=== PATIENT | male | born 1980 | race Caucasian/White ===

== ENCOUNTER 2018-05-04 05:50 | Day surgery (SDC) | payer OTHER ==
[~2018-05-04] VITALS: Ht 188 cm; Wt 108.9 kg
[2018-05-04 12:15] VITALS: BP 119/82
[2018-05-04 15:00] VITALS: BP 119/82
--- NOTE | 2018-05-06 10:52 | O ---
[facility] [place] [address] OPERATIVE REPORT Name: DAYANNA CARDONA Room #: [facility] Mary Carmen#: [id number] Admission: 05/04/18 Attend Phys: Paco Rodriguez Discharge: 05/04/18 Date of : 82 Report #: [id number] THIS REPORT FOR: //name// CC: Paco YATES Physician staff [facility] DATE OF SERVICE: 05/04/2018 PREOPERATIVE DIAGNOSES: Right knee pain, anterior cruciate ligament tear, lateral meniscus tear. 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 PROCEDURE PERFORMED: Right knee arthroscopy, anterior cruciate ligament reconstruction, lateral meniscus repair, chondroplasty of medial femoral condyle. SURGEON: Paco Moreno M.D. DOCUMENT REVIEW ATTORNEY: Nazia Lino PA-C. ANESTHESIA: General with preoperative ultrasound-guided adductor block. FLUIDS: 1000 mL crystalloid. ESTIMATED BLOOD LOSS: Approximately 5 mL. IMPLANTS UTILIZED: Arthrex ACL TightRope device with a Mitek Bio-Intrafix 7 x 9 mm screw with a large sheath. DESCRIPTION OF PROCEDURE: After proper identification of the patient and the operative site in preoperative holding area, the operative site was signed by myself. Prophylactic antibiotics were given. The patient had elected to receive an adductor block by Anesthesia. This was performed under ultrasound guidance after reviewing the risks, benefits, alternatives and potential complications with Anesthesia. After a satisfactory block, the patient was brought back to the operative suite. After induction of satisfactory general anesthesia the right knee was examined, 2+ Sophia was noted as well as pivot shift. Tourniquet was applied to the upper thigh. Limb was placed in an arthroscopic leg bynum and sterilely prepped and draped in usual manner. The leg bynum accommodated hyperflexion. Limb was sterilely prepped and draped in the usual manner, elevated and exsanguinated with an Esmarch. Tourniquet was inflated to 300 mmHg. A superior medial portal was created for inflow purposes. [address] [address] OPERATIVE REPORT Name: DAYANNA CARDONA Room #: [facility] Mary Carmen#: [id number] Admission: 05/04/18 Attend Phys: Paco Rodriguez Discharge: 05/04/18 Date of : 82 Report #: [id number] Joint was inflated with an arthroscopic pump set at 40 mmHg. An anterolateral and then an anteromedial portal were created using a spinal needle for localization. Examination of the knee, suprapatellar pouch, medial and lateral gutters revealed some mild synovitis. Patellofemoral articulation was normal in appearance. Medial compartment of knee demonstrated some mild fibrillation of the more lateral margin of the medial femoral condyle at approximately 30 degrees of flexion. Medial meniscus was stable to probing. Anterior cruciate ligament demonstrated a full thickness tear. PCL was intact. Lateral compartment of the knee demonstrated a tear of the posterior horn of the lateral meniscus that was fairly peripheral in nature. Frayed portion of the meniscus was carefully debrided. The tear appeared to be amenable to repair. There was some mild softening of the meniscus, but overall it appeared amenable to repair and 2 [employer] Fast-Fix devices were used in a horizontal mattress fashion to reduce and repair the tear. It was stable to probing. No significant chondral abnormalities were noted about the lateral compartment. At this point, attention was divided to obtaining the graft. An incision overlying the pes tendons was planned. Full thickness skin flaps were developed. Sartorial fascia was identified and elevated in an L-shaped manner. Great care was taken to preserve the medial collateral ligament. At this point, the gracilis and semitendinosis tendons were bluntly dissected free. Right angle clamp was utilized to help assist in this and whipstitches were placed on the free ends. Adhesions were then carefully removed from the gracilis and semi-T tendons. The gracilis was able to be harvested for approximately 10 mm before the graft was either amputated or he ran out of tendinous material. The semitendinosis was harvested without complication with a nice graft based on our preoperative discussion of if we had any difficulties with obtaining a satisfactory graft an allograft would be utilized to supplement and this was obtained from the freezer, thawed and the combined anterior tibialis and semitendinosis graft created with 10 mm graft with plenty of length. This was placed on the GraftMaster under tension. Instruments were reinserted into the knee and the remaining ACL was carefully debrided. Footprints were left for visualization purposes. With the knee in a flexed position, an Arthrex tibial aiming guide was used, 10 mm tunnel was drilled and with the knee in a hyperflexed position using a 7 mm over the top guide, the femoral tunnel was drilled. Great care was taken to ensure the appropriate trajectory. Back wall was present. This was drilled over the pin. Total tunnel length was approximately 42 mm and a 30 mm tunnel was drilled within the femur. Any excess bone debris was carefully removed. A low profile reamer was used and was carefully passed by the medial femoral condyle. Any remaining bone debris was carefully removed. A FiberWire was passed into the femoral tunnel and then pulled into position on the tibial tunnel. This was then utilized to pull the ACL, TightRope device as well as the graft into position. The metal button was able to be toggled and was secured with longitudinal traction and appeared to be well seated on the cortex. There was no evidence of impingement on the graft in full extension or in flexion. The sutures were tied together and the Bio-Intrafix tensioning device was utilized and the knee was cycled for several [facility] [address] [place] [address] OPERATIVE REPORT Name: DAYANNA CARDONA Room #: [facility] Mary Carmen#: [id number] Admission: 05/04/18 Attend Phys: Paco Rodriguez Discharge: 05/04/18 Date of : 82 Report #: [id number] minutes to reduce any potential creep. Next, in full extension, tibial tunnel was dilated, a Bio-Intrafix a size large sheath was inserted and then a 7 x 9 mm tapered Bio-Intrafix screw was then utilized for fixation on the tibial side. The repair construct was stable to probing and Sophia maneuver. No evidence of impingement was noted with range of motion and the knee was again thoroughly irrigated with normal saline as well as the open incision. A 20 mL of 0.2% Naropin was injected around the skin incisions to aid in postoperative pain control. Sterile compressive dressing was applied. A hinged knee brace locked in full extension was applied. Qualified licensed investment sales assistant was utilized throughout the entire procedure to aid in patient limb positioning, visualization and retraction of soft tissues, instrument passage, for closure and dressing and brace application. <ELECTRONICALLY SIGNED> By: Paco Moreno MD 05/06/18 [id number] Paco Moreno MD /nt
== END 2018-05-04 16:20 | disposition home or self-care (01) ==
LOC: OR 05:50 → TBA 05:52 → OR 09:21
DX: S83.511A Sprain of anterior cruciate ligament of right knee, initial encounter (principal); S83.281A Other tear of lateral meniscus, current injury, right knee, initial encounter; M94.261 Chondromalacia, right knee; M25.561 Pain in right knee; Z87.891 Personal history of nicotine dependence; Z98.890 Other specified postprocedural states; X58.XXXA Exposure to other specified factors, initial encounter; Y93.89 Activity, other specified; Y92.89 Other specified places as the place of occurrence of the external cause; Y99.8 Other external cause status
CPT/HCPCS: 50010; 50101; 50176; 50386; 50405; 50624; 50717; 51038; 51445; 52138; 52313; 54170; 55430; 56525; 56526; 56531; 57103; 57180; 62110; 62900; 64042; 70005